=== PATIENT | female | born 1960 | race Caucasian/White ===

== ENCOUNTER 2020-04-21 10:00 | Outpatient (CLI) | payer OTHER ==
[2013-10-23 02:49] VITALS: BMI 27.4
[~2020-04-21 10:00] MED LIST: ARISTOCORT 0.5%15 GM; ATARAX 25 MG TA25 MG PO; BACTRIM DS TABL1 TAB PO; MOTRIN600 MG PO; MULTI-DAY VITAM1 TAB PO; PAROXETINE HCL10 MG PO; PERCOCET 5/3251 TA1 PO; PRILOSEC20 MG PO; SYNTHROID50 MCG PO; VIVELLE-DO1 PATCH.B1 TRANSDERM
== END 2020-04-21 11:00 | disposition home or self-care (01) ==
LOC: D.MAMMO 10:00
PROVIDERS: ATTEND Family Medicine
DX: Z12.31 Encounter for screening mammogram for malignant neoplasm of breast (principal)